=== PATIENT | female | born 1995 | race Caucasian/White ===

== ENCOUNTER → 2016-05-15 | Outpatient (CLI) | payer BC, OTHER ==
--- NOTE | 2016-05-15 09:38 | DIAGNOSTIC IMAGING REPORT ---
TWO VIEW CHEST CLINICAL HISTORY: Chronic bronchitis. FINDINGS: PA and lateral chest radiographs are obtained. No prior studies are available for comparison at the time of dictation. The cardiomediastinal silhouette is unremarkable. An accessory azygous fissure is incidentally noted. The lungs and pleural spaces are clear. There is no pneumothorax. The bony thorax appears intact. IMPRESSION: No active disease in the chest. Electronically signed by: Rafael Salmon M.D. 05/15/2016 9:36 AM Dictated Date/Time: 05/15/2016 9:35 AM
== END | disposition home or self-care (01) ==
LOC: C.RAD1850 09:22
PROVIDERS: ATTEND Internal Medicine Pulmonary Disease
DX: J42 Unspecified chronic bronchitis (principal)

== ENCOUNTER → 2017-06-18 | Outpatient (CLI) | payer BC | END | disposition home or self-care (01) | LOC: C.RDSM 19:10 | PROVIDERS: ATTEND Physical Medicine & Rehabilitation Sports Medicine | DX: M79.642 Pain in left hand (principal) ==

== ENCOUNTER 2017-07-31 03:39 | Emergency (ER) | payer BC ==
[~2017-07-31] VITALS: Ht 160 cm; Wt 52.3 kg
[2017-07-31 03:42] VITALS: TEMP 36.4; Ht 160 cm; Wt 52.3 kg
[2017-07-31] MEDS ORDERED: KETOROLAC TROMETHAMINE 30 MG/ML VIAL IV STA (03:50)
[2017-07-31] MEDS ORDERED: ONDANSETRON INJ 2 MG/ML 2 ML VIAL IV STA ×2 (03:50→06:01)
[2017-07-31] MEDS ORDERED: SODIUM CHLORIDE 0.9% 1000ML 1,000 ML IV STA (03:50)
[2017-07-31 04:04] VITALS: O2SAT 98
[2017-07-31 04:05] LABS: BASO % 0.2 %; BASO ABS # 0.03 K/uL (0-0.2); EOS % 0.5 %; EOS ABS # 0.07 K/uL (0-0.5); HEMOGLOBIN 14.6 g/dL (12.0-16.0); IG# 0.04 K/uL (0.00-0.02); LYMPH % 26.4 %; MEAN CELL VOLUME 85.4 fL (80-100); MEAN CORPUSCULAR HEMOGLOBIN 30.4 pg (25-34); MEAN CORPUSCULAR HGB CONC 35.6 g/dl (32-36); MEAN PLATELET VOLUME 10.1 fL (7.4-10.4); MONO ABS # 1.09 K/uL (0.11-0.59); NEUT % 64.6 %; NEUT ABS # 8.81 K/uL (1.4-6.5); PLATELET COUNT 376 K/uL (130-400); RED CELL DISTRIBUTION WIDTH CV 12.3 % (11.5-14.5); WHITE BLOOD COUNT 13.64 K/uL (4.8-10.8)
[2017-07-31 04:27] LABS: ALBUMIN 3.6 gm/dl (3.4-5.0); CALCIUM 9.3 mg/dl (8.5-10.1); CREATININE 1.15 mg/dl (0.60-1.20); POTASSIUM 3.4 mmol/L (3.5-5.1)
[2017-07-31 04:30] LABS: TOTAL PROTEIN 8.3 gm/dl (6.4-8.2)
[2017-07-31] MEDS ORDERED: OPTIRAY 320 IV PRN (06:00)
[2017-07-31] MEDS ORDERED: PATIENT'S ALLERGY INFO NEEDS ENTERED STA (06:02)
[2017-07-31] MEDS ORDERED: MoRPHine SULFATE 4 MG/ML 1 ML CARP\\VIAL IV STA (06:16)
[2017-07-31] MEDS ORDERED: BCPILLS PO (06:18)
--- NOTE | 2017-07-31 06:37 | DIAGNOSTIC IMAGING REPORT ---
PELVIC ULTRASOUND CLINICAL HISTORY: pelvic pain, ? cyst/torsion/stone COMPARISON STUDY: No previous studies for comparison. TECHNIQUE: Transabdominal and transvaginal sonography of the pelvis was performed. FINDINGS: The uterus measures 7.7 x 2.4 x 4.3 cm. Endometrium is normal in thickness. The right ovary measures 2.8 x 1.3 x 1.6 cm and the left ovary measures 2.3 x 1.4 x 1.9 cm. Color flow is identified within each ovary. Note is made of a 5 cm shadowing structure within the left adnexa which appears separate from the uterus and left ovary. IMPRESSION: 1. Unremarkable sonographic appearance of the uterus and ovaries. 2. 5 cm shadowing structure within the left adnexa which appears separate from the uterus and ovary. This may reflect a bowel loop. However, a mass could appear similar. This can be assessed with a follow-up CT. Electronically signed by: Travon Sol M.D. 07/31/2017 6:36 AM Dictated Date/Time: 07/31/2017 6:32 AM
--- NOTE | 2017-07-31 07:06 | DIAGNOSTIC IMAGING REPORT ---
(RENAL)RETROPERITON COMP CLINICAL HISTORY: 21 years-old Female presenting with right flank/pelvic pain, ? stone. TECHNIQUE: Real-time grayscale and limited color Doppler ultrasound imaging of the kidneys and bladder was performed. COMPARISON: None. FINDINGS: Right kidney: Normal echogenicity of renal parenchyma. Prominent junctional parenchymal defect. Right kidney measures 10.4 cm. No hydronephrosis. No convincing evidence of calculus or mass. Left kidney: Normal echogenicity of renal parenchyma. Prominent lobulations. Left kidney measures 11.0 cm. No hydronephrosis. No convincing evidence of calculus or mass. Bladder: Decompressed. The bladder may contain debris. Bilateral ureteral jets not visualized. Other: None. IMPRESSION: 1. Normal renal ultrasound. No obstruction. No sonographic evidence of calculi. Electronically signed by: Yonatan Muir M.D. 07/31/2017 7:04 AM Dictated Date/Time: 07/31/2017 6:58 AM
--- NOTE | 2017-07-31 08:06 | DIAGNOSTIC IMAGING REPORT ---
CT SCAN OF THE ABDOMEN AND PELVIS WITH IV CONTRAST CLINICAL HISTORY: Lower abdominal pain. COMPARISON STUDY: Pelvic ultrasound dated 07/31/2017. TECHNIQUE: Following the IV administration of 92 cc of Optiray 320, CT scan of the abdomen and pelvis is performed from the lung bases to the proximal femora. Images are reviewed in the axial, sagittal, and coronal planes. IV contrast was administered without complication. A dose lowering technique was utilized adhering to the principles of ALARA. CT DOSE: 300.20 mGy.cm FINDINGS: Lung bases: The heart is normal in size and without pericardial effusion. The lung bases are clear. There are bilateral nipple piercings. Liver: The contrast-enhanced liver is normal in size, contour, and attenuation. There is no intrahepatic biliary ductal dilatation. The hepatic veins and portal veins are patent. Mild periportal edema is likely related to hydration status. Gallbladder: Unremarkable. Spleen: Normal in size and attenuation. Pancreas: Unremarkable. Adrenal glands: Unremarkable. Kidneys: The contrast enhanced kidneys are normal in size and without hydronephrosis. There is heterogeneous low-attenuation questioned involving the medullary pyramids, greatest in the upper poles. The overlying cortex is normal and homogeneous. The kidneys enhance symmetrically. Abdominal vasculature: The abdominal aorta is normal in course and caliber. Bowel: The small bowel and colon are normal in course and caliber. The appendix is well-visualized and normal. Peritoneum: There is no intraperitoneal free air or abdominal ascites. A naval piercing is identified. There is a tiny fat-containing umbilical hernia. Lymphadenopathy: None. Pelvic viscera: The bladder, uterus, and adnexa are normal as visualized. Small ovarian follicles are noted. Trace free fluid in cul-de-sac is likely within physiologic limits. Skeletal structures: No lytic or blastic lesions are seen. IMPRESSION: 1. There is heterogeneous low-attenuation suggested involving the renal medullary pyramids. The overlying cortex is normal in appearance and the kidneys enhance homogeneously. This finding is nonspecific and may be artifactual. Correlate clinically and with urinalysis for evidence of polynephritis or other forms of nephritis. 2. Trace free fluid in the cul-de-sac is likely within physiologic limits. 3. There is no left adnexal abnormality identified. The finding of concern by ultrasound likely represent a bowel loop. Electronically signed by: Rafael Salmon M.D. 07/31/2017 8:04 AM Dictated Date/Time: 07/31/2017 7:54 AM
[2017-07-31] MEDS ORDERED: METOCLOPRAMIDE HCL INJ 5 MG/ML 2 ML VIAL IV STA (08:14)
[2017-07-31] MEDS ORDERED: CEFTRIAXONE SOD INJ 1 GM ADDVIAL IV STA (08:28)
[2017-07-31] MEDS ORDERED: CEPH500C2 PO (09:01)
[2017-07-31 09:43] VITALS: BP 113/65; PULSE 50; O2SAT 100
--- NOTE | 2017-07-31 17:03 | EMERGENCY ROOM VISIT NOTE ---
ED Visit Note Emergency Department Note. Ms. Benitez is a 21-year-old white female whose care was transferred to [facility] by Demetra Lopez PA-C at the end of her shift pending a abdominal CT. Briefly patient developed an acute onset of right flank and right sided abdominal pain approximately 3 hours before she arrived in the emergency department. This was associated with nausea. She was treated aggressively with pain medications and antinausea and symptoms resolved. Her laboratory reports showed she had a mild leukocytosis with a left shift and bandemia, slightly elevated lipase at 584, negative and her urinalysis showed leukoesterase, greater than 30 white blood cell count, greater than 30 epithelial cells and 1+ bacteria. IV Contrast Abdominal/Pelvic CT: Was read by the radiologist and shows: 1. There is heterogeneous low-attenuation suggested involving the renal medullary pyramids. The overlying cortex is normal in appearance and the kidneys enhance homogeneously. This finding is nonspecific and may be artifactual. Correlate clinically and with urinalysis for evidence of polynephritis or other forms of nephritis. 2. Trace free fluid in the cul-de-sac is likely within physiologic limits. 3. There is no left adnexal abnormality identified. The finding of concern by ultrasound likely represent a bowel loop. ED COURSE: When patient arrived back in the emergency department from a CT she had return of nausea/vomiting and was given 10 mg of Reglan IV. I did review the case with my attending Dr. Nixon and based on her presentation and laboratory tests these indicate a possible pyelonephritis. I will treat this aggressively with IV antibiotics; patient received 1 g of Rocephin IV. Urine cultures are currently pending. She was trialed on fluids prior to discharge and had no return of nausea and vomiting. DISPOSITION: Patient was educated about today's findings and instructed on her treatment plan; she verbalized understanding and agreement with this plan. Prior to discharge she was reassessed and subjectively reported that she was pain and symptom-free. PLAN: Patient was prescribed Keflex 500 mg 4 times a day for 7 days. Patient was encouraged to rest and stay well-hydrated with increased clear fluids. Patient was encouraged to avoid strenuous activity until resolution of symptoms. Patient was encouraged to use ibuprofen and acetaminophen every 6 hours as needed for pain or alternate every 3 hours. Patient was encouraged to continue her current medication. Patient was encouraged to return to the ED for severe pain, heavy vaginal bleeding, vomiting, fevers, chest pain, difficulty breathing, worsening of her condition or any new/concerning symptoms. Patient was encouraged to follow-up with [facility] in 2-3 days for recheck.
--- NOTE | 2017-08-01 02:29 | EMERGENCY ROOM VISIT NOTE ---
History First contact with patient: 03:47 Chief Complaint: ABDOMINAL PAIN Stated Complaint: STOMACH PAIN History of Present Illness The patient is a 21 year old female who presents to the Emergency Room with complaints of severe sudden onset of right flank pain that radiates to her suprapubic region that woke her up out of sleep at midnight. Pain 9 out of 10. Nothing makes it better or worse. Patient denies chest pain, dyspnea, fever, chills, vomiting, diarrhea, urinary symptoms, vaginal itching or discharge. No history of kidney stones. No history of ovarian cyst. Last menstrual cycle was 1 month ago. Patient denies risk for . Review of Systems An 10 system review of systems was completed with positives and pertinent negatives listed in the HPI. Past Medical/Surgical History GERD Social History Smoking Status: Never Smoker Smokeless Tobacco Use: No Drug Use: none Housing Status: lives with roommate Occupation Status: [employer] student Current/Historical Medications Scheduled Control Pills ( Control Pills), 1 TAB PO DAILY Cephalexin Monohydrate (Keflex), 500 MG PO QID Physical Exam Vital Signs Date Time Temp Pulse Resp B/P (MAP) Pulse Ox O2 Delivery O2 Flow Rate FiO2 07/31/17 09:43 50 16 113/65 100 07/31/17 07:54 69 16 125/87 100 07/31/17 05:29 94 18 110/66 100 Room Air 07/31/17 04:04 98 Room Air 07/31/17 03:42 36.4 111 18 104/73 99 Room Air Physical Exam VITALS: Vitals are noted on the nurse's note and reviewed by myself. Vital signs stable. GENERAL: Pleasant female who appears in pain, in no acute distress, nondiaphoretic, well-developed well-nourished. SKIN: The skin was without rashes, erythema, edema, or bruising. There is no tenting of the skin. Capillary reflex less than 2 seconds. HEAD: Normocephalic atraumatic. EARS: External auditory canals clear, tympanic membranes pearly cook without erythema or effusion bilaterally. EYES: Pupils equal round and reactive to light and accommodation. Conjunctivae without injection, sclerae without icterus. Extraocular movements intact. NOSE: Patent, turbinates without inflammation or discharge. MOUTH: Mucous membranes moist. Pharynx without erythema or exudate. Uvula midline. Airway patent. Tongue does not deviate. NECK: Supple without nuchal rigidity. No lymphadenopathy. No thyromegaly. Cervical spine is nontender. No JVD. HEART: Regular rate and rhythm without murmurs gallops or rubs. LUNGS: Clear to auscultation bilaterally without wheezes, rales or rhonchi. No retractions or accessory muscle use. ABDOMEN: Positive bowel sounds x 4. Normal tympanic percussion. Soft, minimally tender suprapubic region, without masses or organomegaly. Caban sign negative. No guarding or rebound tenderness. No CVA tenderness MUSCULOSKELETAL: No muscle atrophy, erythema, or edema noted. NEURO: Patient was alert and oriented to person place and time. Normal sensation to light and sharp touch. No focal neurological deficits. Medical Decision & Procedures Laboratory Results 07/31/17 03:55 Red Blood Count 4.80, Mean Corpuscular Volume 85.4, Mean Corpuscular Hemoglobin 30.4, Mean Corpuscular Hemoglobin Concent 35.6, Mean Platelet Volume 10.1, Neutrophils (%) (Auto) 64.6, Lymphocytes (%) (Auto) 26.4, Monocytes (%) (Auto) 8.0, Eosinophils (%) (Auto) 0.5, Basophils (%) (Auto) 0.2, Neutrophils # (Auto) 8.81, Lymphocytes # (Auto) 3.60, Monocytes # (Auto) 1.09, Eosinophils # (Auto) 0.07, Basophils # (Auto) 0.03 07/31/17 03:55 Test 07/31/17 03:55 White Blood Count 13.64 K/uL (4.8-10.8) Red Blood Count 4.80 M/uL (4.2-5.4) Hemoglobin 14.6 g/dL (12.0-16.0) Hematocrit 41.0 % (37-47) Mean Corpuscular Volume 85.4 fL (80-100) Mean Corpuscular Hemoglobin 30.4 pg (25-34) Mean Corpuscular Hemoglobin Concent 35.6 g/dl (32-36) Platelet Count 376 K/uL (130-400) Mean Platelet Volume 10.1 fL (7.4-10.4) Neutrophils (%) (Auto) 64.6 % Lymphocytes (%) (Auto) 26.4 % Monocytes (%) (Auto) 8.0 % Eosinophils (%) (Auto) 0.5 % Basophils (%) (Auto) 0.2 % Neutrophils # (Auto) 8.81 K/uL (1.4-6.5) Lymphocytes # (Auto) 3.60 K/uL (1.2-3.4) Monocytes # (Auto) 1.09 K/uL (0.11-0.59) Eosinophils # (Auto) 0.07 K/uL (0-0.5) Basophils # (Auto) 0.03 K/uL (0-0.2) RDW Standard Deviation 38.0 fL (36.4-46.3) RDW Coefficient of Variation 12.3 % (11.5-14.5) Immature Granulocyte % (Auto) 0.3 % Immature Granulocyte # (Auto) 0.04 K/uL (0.00-0.02) Urine Color DK YELLOW Urine Appearance TURBID (CLEAR) Urine pH 5.0 (4.5-7.5) Urine Specific [place]ley 1.018 (1.000-1.030) Urine Protein 2+ (NEG) Urine Glucose (UA) NEG (NEG) Urine Ketones TRACE (NEG) Urine Occult Blood NEG (NEG) Urine Nitrite NEG (NEG) Urine Bilirubin NEG (NEG) Urine Urobilinogen NEG (NEG) Urine Leukocyte Esterase TRACE (NEG) Urine WBC (Auto) >30 /hpf (0-5) Urine RBC (Auto) 0-4 /hpf (0-4) Urine Hyaline Casts (Auto) 1-5 /lpf (0-5) Urine Epithelial Cells (Auto) >30 /lpf (0-5) Urine Bacteria (Auto) 1+ (NEG) Urine Pathogenic Casts /lpf (0) Urine Test NEG (NEG) Anion Gap 10.0 mmol/L (3-11) Est Creatinine Clear Calc Drug Dose 64.4 ml/min Estimated GFR () 79.3 Estimated GFR (Non- 68.4 BUN/Creatinine Ratio 11.4 (10-20) Calcium Level 9.3 mg/dl (8.5-10.1) Total Bilirubin 0.6 mg/dl (0.2-1) Direct Bilirubin 0.1 mg/dl (0-0.2) Aspartate Amino Transf (AST/SGOT) 18 U/L (15-37) Alanine Aminotransferase (ALT/SGPT) 37 U/L (12-78) Alkaline Phosphatase 58 U/L (45-117) Total Protein 8.3 gm/dl (6.4-8.2) Albumin 3.6 gm/dl (3.4-5.0) Lipase 584 U/L (73-393) Medications Administered Medications (Trade) Dose Ordered Sig/Cata Route Start Time Stop Time Status Last Admin Dose Admin Ketorolac Tromethamine (Toradol Inj) 30 mg NOW STAT IV 07/31/17 03:50 07/31/17 03:53 DC 07/31/17 04:00 30 MG Ondansetron HCl (Zofran Inj) 4 mg NOW STAT IV 07/31/17 03:50 07/31/17 03:53 DC 07/31/17 03:59 4 MG Sodium Chloride 1,000 ml @ 999 mls/hr Q1H1M STAT IV 07/31/17 03:50 07/31/17 04:50 DC 07/31/17 03:59 999 MLS/HR Ondansetron HCl (Zofran Inj) 4 mg NOW STAT IV 07/31/17 06:01 07/31/17 06:02 DC 07/31/17 06:09 4 MG Miscellaneous Information (Patient'S Allergy Info Needs Entered) 1 ea NOW STAT N/A 07/31/17 06:02 07/31/17 06:03 DC 07/31/17 06:02 1 EA Morphine Sulfate (MoRPHine SULFATE INJ) 4 mg NOW STAT IV 07/31/17 06:16 07/31/17 06:17 DC 07/31/17 06:25 4 MG Metoclopramide HCl (Reglan Inj) 10 mg NOW STAT IV 07/31/17 08:14 07/31/17 08:15 DC 07/31/17 08:21 10 MG Ceftriaxone Sodium (Rocephin Inj) 1 gm NOW STAT IV 07/31/17 08:28 07/31/17 08:29 DC 07/31/17 08:40 1 GM ED Course Prior records/ancillary studies reviewed. Triage Nursing notes reviewed. Additional history obtained from friend The patient's history was concerning for abdominal pain. Differential diagnosis: Etiologies such as , cyst, torsion, infection, appendicitis, diverticulitis, PUD, biliary pathology, UTI, pancreatitis, obstruction, mesenteric ischemia, aortic pathology, infections, inflammatory bowel disease, renal colic, as well as others were entertained. Physical examination findings: As above. ER treatment provided: Toradol, Zofran, IV fluids On reassessment the patient felt better. Diagnostics interpreted by me: The labs revealed leukocytosis. Negative hCG. Mildly elevated lipase Imaging studies: CT pending US RENAL: Bilateral kidneys are normal in size and echotexture. No evidence of hydronephrosis or shadowing nephrolithiasis. No suspicious renal mass. Bladder is decompressed. Bilateral ureteral jets not visualized. Radiologist: Sukhwinder Arceo, DO US PELVIC/ENDOVAG: Normal uterus and ovaries with appropriate flow. There is a possible 5 cm hypoechoic mass in the left adnexal area which appears separate from the left ovary or the uterus (series 2). May possibly be a dermoid or endometrioma. Recommend CT of the abdomen and pelvis with contrast for further characterization. Radiologist: Carmelo Roldan MD Study ready at 05:24 and initial results transmitted at 05:28 Critical Value Communications Exam and history seem consistent with lower abdominal pain pending CT at time of signout. Radiology recommends CT imaging after ultrasound and this was ordered. This is pending at time of signout. patient was neurovascularly and neurologically intact. She is well-appearing. She did not have an acute abdomen on exam. She is tolerating fluids. By the evaluation outlined above emergent etiologies such as appendicitis, diverticulitis, PUD, biliary pathology, UTI, pancreatitis, obstruction, mesenteric ischemia, aortic pathology, infections, inflammatory bowel disease, renal colic, as well as others were deemed relatively unlikely. Case was signed out to ALONDRA Spear, pending CT and reevaluation in stable condition. Case reviewed with my attending The chart was completed utilizing [employer] voice recognition software. Grammatical errors, random word insertions, pronoun errors, and incomplete sentences are an occassional consequence of this system due to software limitations, ambient noise, and hardware issues. Any formal questions or concerns about the content, text, or information contained within the body of this dictation should be directly addressed to the physician review assistant for clarification. Medical Decision As above Medication Reconcilliation Current Medication List: was personally reviewed by me Blood Pressure Screening Patient's blood pressure: Normal blood pressure Impression Primary Impression: LOWER ABDOMINAL PAIN, UNSPECIFIED Departure Information Prescriptions Cephalexin Monohydrate (KEFLEX) 500 Mg Cap 500 MG PO QID for 7 Days, #28 CAP Prov: Jan Willard PA-C 07/31/17 Referrals No Doctor, Assigned (PCP) Patient Instructions My [facility]
== END 2017-07-31 09:44 | disposition home or self-care (01) ==
LOC: C.EDB 03:40 → C.EDA 09:44
DX: R10.31 Right lower quadrant pain (principal); R11.0 Nausea; D72.825 Bandemia; R74.8 Abnormal levels of other serum enzymes; R82.99 Other abnormal findings in urine; Z79.3 Long term (current) use of hormonal contraceptives